=== PATIENT | female | born 1995 ===

== ENCOUNTER 2018-04-05 15:24 | Inpatient (IN) | payer BC ==
[~2018-04-05] VITALS: Ht 167.6 cm; Wt 86.8 kg
[2018-04-07] VITALS (32 sets, daily range): BP systolic 98–136; BP diastolic 50–89; PULSE 52–74; TEMP 97.8–98.2
[2018-04-07] MEDS ORDERED: PRENATAL PO (08:57)
[2018-04-07 09:48] LABS: BASO % 0.3 % (0.0-2.0); EOS # 0.1 (0.0-0.7); EOS % 0.4 % (0-4.0); GRAN # 8.3 (1.4-6.5); GRAN % 72.4 % (42.2-75.2); HEMATOCRIT 34.2 % (37.0-47.0); HEMOGLOBIN 10.8 g/dl (12.5-16.0); LYMPH # 2.1 (1.2-3.4); LYMPH % 18.4 % (20.0-51.0); MEAN CELL VOLUME 90 fl (80.0-100.0); MEAN CORPUSCULAR HEMOGLOBIN 28 pg (27.0-31.0); MEAN CORPUSCULAR HGB CONC 32 g/dl (33.0-37.0); MEAN PLATELET VOLUME 13.9 fl (7.4-10.4); MONO # 0.9 (0.1-0.6); PLATELET COUNT 186 K/mm3 (130-400); REDCELL DISTRIBUTION WIDTH-CV 13.7 % (11.5-14.5)
[2018-04-08 00:43] VITALS: BP 102/58; PULSE 70; TEMP 98.5
[2018-04-08 04:30] VITALS: BP 97/62; PULSE 82
[2018-04-08 09:00] VITALS: BP 109/57; PULSE 79; TEMP 97.9
[2018-04-08] MEDS ORDERED: IBU600 MG PO (09:05)
== END 2018-04-08 16:45 | disposition home or self-care (01) | DRG 775 ==
LOC: LDR 04-07 08:23 → OB 04-07 17:15
PROVIDERS: Obstetrics & Gynecology
PROC: 10E0XZZ Delivery of Products of Conception, External Approach (ICD-10-PCS; principal; 2018-04-07)
PROC: 0HQ9XZZ Repair Perineum Skin, External Approach (ICD-10-PCS; 2018-04-07)
PROC: 0HB9XZZ Excision of Perineum Skin, External Approach (ICD-10-PCS; 2018-04-07)
DX: O80 Encounter for full-term uncomplicated delivery (principal); O26.893 Other specified pregnancy related conditions, third trimester; D22.5 Melanocytic nevi of trunk; O70.0 First degree perineal laceration during delivery; Z3A.39 39 weeks gestation of pregnancy; Z37.0 Single live birth
CPT/HCPCS: J2590; J7120